=== PATIENT | female | born 1970 | race Caucasian/White ===

== ENCOUNTER 2022-02-08 10:39 | Outpatient (CLI) | payer BC | END 2022-02-08 10:40 | disposition home or self-care (01) | LOC: CSHLAB 10:39 | PROVIDERS: ATTEND Obstetrics & Gynecology | DX: Z01.812 Encounter for preprocedural laboratory examination (principal); Z20.822 Contact with and (suspected) exposure to COVID-19 | CPT/HCPCS: 84703; 85027; 86850; 86900; 86901; U0003; U0005 ==

== ENCOUNTER 2022-02-13 08:27 | Day surgery (SDC) | payer BC ==
[2022-02-08 12:33] LABS: BHCG - Serum Negative (NEGATIVE); Pregs Control Background? CLEAR/WHITE (CLR/WHITE); Pregs Control Bar Appear? YES (CONTROL BAR)
[2022-02-08 12:37] LABS: Hemoglobin 13.1 g/dL (12.0-15.5); Mean Corpuscular HGB CONC 32.7 g/dL (32.0-36.0); Mean Corpuscular Hemoglobin 31.1 pg (27.0-33.0); Mean Corpuscular Volume 95.2 fl (81.6-98.3); Mean Platelet Volume 9.9 fl (7.4-10.4); Platelet Count 263 10x3/uL (150-450); RBC Distribution Width 12.9 % (11.5-14.5); Red Blood Cell (RBC) Count 4.21 10x6/uL (3.90-5.03); White Blood Cell (WBC) Count 4.8 10x3/uL (3.5-10.5)
[2022-02-08 16:35] VITALS: BMI 26.4
[2022-02-08 22:53] LABS: SARS-CoV-2 PCR by NAA Not Detected (NotDetected)
[2022-02-13] MEDS ORDERED: Gabapentin 300 MG CAP ONE (08:46)
[2022-02-13] MEDS ORDERED: CeleCOXIB 100 MG CAP ONE (08:47)
[2022-02-13] MEDS ORDERED: Famotidine/PF 20 mg/2ml Vial ONE (08:47)
[2022-02-13] MEDS ORDERED: Lidocaine 1% MPF 2 ML VIAL ONE (08:47)
[2022-02-13] MEDS ORDERED: Bupivacaine PF 0.5% 30 ML VIAL ONE (09:45)
[2022-02-13] MEDS ORDERED: EPINEPHrine 1 MG/ML AMP ONE (09:45)
[2022-02-13] MEDS ORDERED: Midazolam HCl 2 mg/2 ml Vial SLOW IVP SCH (09:45)
[2022-02-13] MEDS ORDERED: Dexamethasone 20 MG/5 ML VIAL ONE (09:48)
[2022-02-13] MEDS ORDERED: PROPOFOL 20 ML ONE (09:48)
[2022-02-13] MEDS ORDERED: Midazolam HCl 2 mg/2 ml Vial ONE ×2 (09:48→09:58)
[2022-02-13] MEDS ORDERED: Glycopyrrolate 0.2 MG/ML 5 ML SYRINGE ONE (09:48)
[2022-02-13] MEDS ORDERED: Ketorolac Tromethamine 30 MG/ML VIAL ONE (09:48)
[2022-02-13] MEDS ORDERED: Rocuronium Bromide 10 MG/ML (10ML VIAL) ONE (09:48)
[2022-02-13] MEDS ORDERED: Lidocaine 1% PF 5 ML VIAL ONE (09:48)
[2022-02-13] MEDS ORDERED: Fentanyl 100 MCG/2 ML VIAL ONE (09:49)
[2022-02-13] MEDS ORDERED: ceFAZolin 2 GM/Dextrose 50 ML IVPB ONE (09:56)
[2022-02-13] MEDS ORDERED: HYDROcodone/Acetaminophen 5/325 mg Tablet ONE (13:34)
== END 2022-02-13 13:55 | disposition home or self-care (01) ==
LOC: CSHSDC 08:27
PROVIDERS: ATTEND Obstetrics & Gynecology
PROC: 0UT14ZZ Resection of Left Ovary, Percutaneous Endoscopic Approach (ICD-10-PCS; principal; 2022-02-13)
PROC: 0UT64ZZ Resection of Left Fallopian Tube, Percutaneous Endoscopic Approach (ICD-10-PCS; principal; 2022-02-13)
DX: D27.1 Benign neoplasm of left ovary (principal); E89.0 Postprocedural hypothyroidism; K21.9 Gastro-esophageal reflux disease without esophagitis; Z79.84 Long term (current) use of oral hypoglycemic drugs; Z79.890 Hormone replacement therapy; Z79.899 Other long term (current) drug therapy; Z88.6 Allergy status to analgesic agent; Z88.8 Allergy status to other drugs, medicaments and biological substances; Z20.822 Contact with and (suspected) exposure to COVID-19
CPT/HCPCS: 36415; 84703; 85027; 86850; 86900; 86901; 88307; J0171; J0690; J1100; J1885; J2250; J2704; J3010; S0020; S0028; U0003; U0005

== ENCOUNTER 2022-04-24 08:35 | Outpatient (CLI) | payer BC ==
[2022-04-24] MEDS ORDERED: Iopamidol 300 61% 100 ML VIAL FS ONE (09:13)
== END 2022-04-24 08:36 | disposition home or self-care (01) ==
LOC: CSHCT 08:35
PROVIDERS: ATTEND Internal Medicine Endocrinology, Diabetes & Metabolism
DX: C73 Malignant neoplasm of thyroid gland (principal); E04.2 Nontoxic multinodular goiter; Z98.890 Other specified postprocedural states
CPT/HCPCS: 70491; 71260